=== PATIENT | female | born 1955 | race Caucasian/White ===

== ENCOUNTER 2019-05-21 02:02 | Emergency (ER) | payer SELFPAY ==
[~2019-05-21] VITALS: Ht 160 cm; Wt 68.5 kg
[~2019-05-21 02:02] MED LIST: BENAZEPRIL HCL/1 TA3 PO; LIPITOR40 MG PO
[2019-05-21 02:11] VITALS: Ht 160 cm; Wt 68.5 kg
[2019-05-21 04:33] VITALS: BP 130/74
== END 2019-05-21 05:20 | disposition home or self-care (01) ==
LOC: ED 02:02
DX: I10 Essential (primary) hypertension (principal)
CPT/HCPCS: J1885; Q0162